=== PATIENT | female | born 1980 | race Two or more races ===

== ENCOUNTER 2024-07-19 16:36 | Emergency (ER) | payer SELFPAY ==
[2024-07-19 16:44] VITALS: PULSE 70; RESP 16; O2SAT 98; BMI 29.2
[2024-07-19 16:49] VITALS: BP 130/80; PULSE 60; RESP 16; TEMP 37; O2SAT 98; BMI 29.2
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
[2024-07-19 17:13] VITALS: PULSE 70; RESP 16; O2SAT 98
--- NOTE | 2024-07-19 17:15 | PC.NURSE ---
no answer when called for meds
--- NOTE | 2024-07-19 17:41 | PC.NURSE ---
no answer when called for cat scan
== END 2024-07-19 17:55 | disposition left against medical advice (07) ==
LOC: SERX 17:56
PROVIDERS: Emergency Provider Emergency Medicine
DX: S00.83XA Contusion of other part of head, initial encounter (principal); S80.11XA Contusion of right lower leg, initial encounter; Y09 Assault by unspecified means
CPT/HCPCS: 99281

== ENCOUNTER 2024-09-11 18:52 | Emergency (ER) | payer MEDICAID, SELFPAY ==
[2024-09-11 19:50] VITALS: BP 144/98; PULSE 96; RESP 20; TEMP 36.6; O2SAT 99
[2024-09-11] MEDS: DICYCLOMINE 10 MG CAPSULE PO (20:33)
[2024-09-11] MEDS: ONDANSETRON ODT 4 MG TABRAP PO (20:33)
--- NOTE | 2024-09-11 20:43 | PD.EDNV ---
Nausea/Vomit./Diarrhea-RME/HPI General Chief complaint: Abdominal Pain Stated complaint: ABD PAIN, N/V/D X 2 DAYS, WEAK Time Seen by Provider: 09/11/24 20:16 Arrival date/time: 09/11/24 18:52 44F with no significant PMH presents to ED with 2 days of N/V, LUQ pain/cramping, and some non-bloody diarrhea. There is also some generalized fatigue. Limitations: no limitations Related Data Allergies Allergy/AdvReac Type Severity Reaction Status Date / Time No Known Allergies Allergy Verified 09/11/24 18:55 Review of Systems Review of Systems Systems Reviewed: All systems reviewed, normal except as documented Constitutional Constitutional: Reports system reviewed and no additional complaints, except as documented, Reports anorexia, Reports fatigue, Denies fever(s) and Denies headache(s) ENT Ears, Nose, Mouth, and Throat: Denies disequilibrium and Denies headache(s) Cardiovascular Cardiovascular: Reports system reviewed and no additional complaints, except as documented, Denies chest pain and Denies dyspnea Respiratory Respiratory: Reports system reviewed and no additional complaints, except as documented, Denies cough and Denies dyspnea Gastrointestinal Gastrointestinal: Reports system reviewed and no additional complaints, except as documented, Reports as per HPI, Reports abdominal pain, Reports diarrhea, Reports nausea and Reports vomiting Neurologic Neurologic: Reports system reviewed and no additional complaints, except as documented, Denies confusion, Denies disequilibrium and Denies headache(s) Psychiatric Psychiatric: Denies confusion Endocrine Endocrine: Reports fatigue Past Medical History Social History SMOKING STATUS: Never smoker ED Exam General Limitations: Present no limitations General appearance: Present alert and in no apparent distress Head Head exam: Present atraumatic Eye Eye exam: Present normal appearance, PERRL and EOMI ENT ENT exam: Present normal exam, normal oropharynx and mucous membranes moist Neck Neck exam: Present normal inspection, full ROM and trachea midline Chest Chest inspection: Present normal inspection and symmetric chest wall rise Respiratory Respiratory exam: Present normal lung sounds bilaterally Cardiovascular Cardiovascular exam: Present regular rate, normal rhythm and normal heart sounds Abdominal Exam Abdominal exam: Present soft and normal bowel sounds Abdominal tenderness: Present LUQ and mild Extremities Exam Extremities exam: Present normal inspection and full ROM Back Exam Back exam: Present normal inspection and full ROM Neurological Exam Neurological exam: Present alert, oriented X3 and CN II-XII intact Psychiatric Psychiatric exam: Present normal affect and normal mood Skin Skin exam: Present warm, dry, intact and normal color Course Quality Measures none Orders Category Date Time Status CBC Stat Lab 09/11/24 20:37 Completed CMP [Comprehensive Metabolic Panel] Stat Lab 09/11/24 20:37 Received Drug Screen,Urine Stat Lab 09/11/24 21:20 Received HCG Qualitative,Urine Stat Lab 09/11/24 21:20 Received Lipase Stat Lab 09/11/24 20:37 Received Urinalysis, C/S if Indicated Stat Lab 09/11/24 21:20 Received Dicyclomine [Bentyl] Med 09/11/24 20:16 Discontinued 10 mg PO X1 ONE Ondansetron Odt [Zofran Odt] Med 09/11/24 20:16 Discontinued 4 mg PO X1 ONE Vital Signs Vital signs: Vital Signs Temperature 97.9 F 09/11/24 19:50 Pulse Rate 96 09/11/24 19:50 Respiratory Rate 20 09/11/24 19:50 Blood Pressure 144/98 H 09/11/24 19:50 Pulse Oximetry (%) 99 09/11/24 19:50 Oxygen Delivery Method Room Air 09/11/24 19:50 O2 at 99% on RA and WNLs Nausea/Vomiting/Diarrhea MDM Narrative MDM Narrative:: 44F with no significant PMH presents to ED with 2 days of N/V, LUQ pain/cramping, and some non-bloody diarrhea. There is also some generalized fatigue. Physical exam reveals minimal LUQ tenderness. Patient is afebrile, calm, and alert. Patient eloped. Patient data External records reviewed:: [facility] previous records Clinical information provided by:: patient Social determinants that could affect healthcare access:: none Patient has the following chronic illnesses:: none How is presenting disease/condition affected by chronic disease/condition?: no chronic disease Evaluation data The following diagnostics were reviewed and interpreted by me:: lab results Lab and/or radiology exams considered but not ordered:: ordered Interpretation Summary: above Medications / Prescriptions Medications / Prescriptions considered but not ordered:: ordered Medication administrations:: Medication Administration History Discontinued Medications Dicyclomine HCl (Dicyclomine 10 Mg Capsule) 10 mg PO X1 ONE Stop: 09/11/24 20:17 Last Admin: 09/11/24 20:33 Dose: 10 mg Documented By: CHICHO Ondansetron HCl (Ondansetron Odt 4 Mg Tabrap) 4 mg PO X1 ONE; Protocol Stop: 09/11/24 20:17 Last Admin: 09/11/24 20:33 Dose: 4 mg Documented By: CB above Consultations Consultation(s) initiated? (list below): No Diagnosis Nausea Differential Diagnosis: traveler's diarrhea, food poisoning, gastroenteritis, clostridium difficile infection, drug-induced nausea and vomiting and dehydration Most likely diagnosis given after review of the tests above:: gastroenteritis Admission Indicated Admission indicated?: not indicated Admission Request Was there a request for admission?: No Disposition Plan Disposition Plan: other (specify) (eloped) Discharge Plan Plan Patient Disposition: Elopement Prescriptions/Referrals Referrals: Shimon Otero MD [Primary Care Provider] - In 1 week Problem List Clinical Impression: Gastroenteritis Patient/Caregiver Discharge Instructions Print Language: Macedonian DRE/MARIA C Supervising Physician LITTLE Supervising Physician: Dr. Meyer
[2024-09-11 20:50] LABS: Basophils # (Auto) 0.0 Thou/mm3 (0.0-0.2); Basophils % (Auto) 0 % (0-2.5); Eosinophils # (Auto) 0.0 Thou/mm3 (0.0-0.5); Eosinophils % (Auto) 0 % (0-10); Hematocrit 43.0 % (36.0-46.0); Hemoglobin 14.1 g/dL (12.0-16.0); Immature Granulocytes Auto 0.05 Thou/mm3 (0.00-0.00); Lymphocytes # (Auto) 1.7 Thou/mm3 (1.0-4.8); Lymphocytes % (Auto) 13 % (10-50); Mean Corpuscular HGB Conc 32.8 g/dl (31.0-37.0); Mean Corpuscular Hemoglobin 30.5 pg (25.0-35.0); Mean Corpuscular Volume 93 fL (80-100); Monocytes # (Auto) 1.1 Thou/mm3 (0.0-0.8); Monocytes % (Auto) 8 % (0-12); Neutrophils # (Auto) 10.6 Thou/mm3 (1.8-7.7); Neutrophils % (Auto) 79 % (37-80); Nucleated Red Blood Cell # 0.00 Thou/mm3 (0.00-0.00); Nucleated Red Blood Cell % 0 /100 WBC (0); Platelet Count 461 Thou/mm3 (140-440); RDW Standard Deviation 45.4 fL (36.4-46.3); Red Blood Count 4.63 Miln/mm3 (4.00-5.20); White Blood Count 13.5 Thou/mm3 (3.6-11.0)
[2024-09-11 21:25] LABS: Collection Type, Urine Clean Catch
--- NOTE | 2024-09-11 21:36 | PC.NURSE ---
NA x3 @2104, 2115, 2134. Patient eloped ED.
[2024-09-11 21:38] LABS: Bilirubin,Urine Negative (Negative); Blood,Urine 3+ (Negative); Calcium Oxalate Crystals,Urine 1+; Clarity,Urine Turbid (Clear/Hazy); Color,Urine Yellow (Lt Yel-Yel); Culture Indicated,Urine Contaminated; Glucose, Urine Negative (Negative); Ketones,Urine Negative (Negative); Leukocyte Esterase,Urine Positive (Negative); Nitrite,Urine Negative (Negative); PH,Urine 6.0 (5.0-7.0); Protein,Urine 1+ (Neg - Trace); RBC,Urine 18 /hpf (0-3); Specific Gravity,Urine 1.034 (1.001-1.035); Squamous Epithelial Cell,Urine 11 /hpf (0-5); Urobilinogen,Urine 2.0 mg/dL (0.0-1.0); WBC,Urine 55 /hpf (0-5)
[2024-09-11 21:43] LABS: HCG Qualitative,Urine Negative
[2024-09-11 22:35] LABS: Alanine Aminotransferase 15 U/L (10-49); Albumin, Serum 4.1 gm/dL (3.5-5.0); Albumin/Globulin Ratio 1.2 (1.2-2.2); Alkaline Phosphatase 64 U/L (46-116); Anion Gap 10 (7-16); Aspartate Amino Transferase 25 U/L (0-34); BUN/Creatinine Ratio 9 Ratio (12-20); Bilirubin,Total 0.8 mg/dL (0.3-1.2); Blood Urea Nitrogen 7 mg/dL (9-23); Calcium 9.7 mg/dL (8.3-10.6); Calcium (Corrected) 9.7 mg/dL (8.5-10.1); Carbon Dioxide 25.0 mMol/L (20.0-31.0); Chloride 101 mMol/L (98-107); Creatinine (Component) 0.8 mg/dL (0.6-1.3); Estimated Creatinine Clearance 78.0 mL/min (>60); Globulin 3.4 gm/dL (2.3-3.5); Glucose 115 mg/dL (74-106); Lipase 31 U/L (12-53); Osmolality,Calculated 270 (275-295); Potassium 4.7 mMol/L (3.4-5.1); Sodium 136 mMol/L (136-145); Total Protein 7.5 gm/dL (5.7-8.2); eGFR > 60 See Note
[2024-09-11 22:37] LABS: Amphetamine/Methamp Scrn,U Positive (Negative); Barbiturate Screen,Urine Negative (Negative); Benzodiazepines Screen,Urine Negative (Negative); Benzoylecgonine Screen, Ur Negative (Negative); Fentanyl Screen,Urine Negative (Negative); Opiate Screen,Urine Negative (Negative); THC Screen,Urine Negative (Negative)
== END 2024-09-11 21:37 | disposition left against medical advice (07) ==
PROVIDERS: Physician Assistant; Emergency Provider Emergency Medicine; PCP Student in an Organized Health Care Education/Training Program
DX: K52.9 Noninfective gastroenteritis and colitis, unspecified (principal)
CPT/HCPCS: 36415; 80053; 80307; 81001; 81025; 83690; 85025; 99283; Q0162; A9270